=== PATIENT | male | born 1995 | race Caucasian/White ===

== ENCOUNTER → 2022-12-13 | Outpatient (CLI) | payer OTHER, SELFPAY ==
--- NOTE | 2022-12-13 | SEP_PTH ---
PATIENT: DEVIN BLACKWOOD LOC: [facility] U#:[id number] AGE/SX: 27/M ROOM: RE12/13/[address]: Dr. Isaiah Bahena MD : 1995 BED: DIS: 12/13/2022 SPEC #: [id number] RECD: 12/14/22 15:17 STATUS: [place] JC #: [id number] XENIA: 12/13/22 00:[address]: Isaiah Bahena DEPT: SURGICAL PATHOLOGY RECD BY: Wild Styles ENTERED: 12/15/22 06:47 SP TYPE: SEPTUM OTHR DR: No Primary Care Phys [facility] Tissues: Nasal septum, NOS Procedures: Decalcification bone/plaque Surgery Specimen Level III HEADER OPERATION: Septoplasty, submucous resection inferior turbinates PRE-OP DIAGNOSIS: Nasal congestion, deviated nasal septum, allergic rhinitis due to pollen, hypertrophy of nasal turbinates TISSUE SUBMITTED: Septum MICROSCOPIC DIAGNOSIS Nasal septum, septoplasty: Fragments of hyaline cartilage and bone with reactive and reparative change (clinically deviated septum). AM:yoni 12/17/2022 MICROSCOPIC DESCRIPTION Slides are reviewed. GROSS DESCRIPTION Received in fixative is one container labeled with the patient's name and designated septum. The specimen consists of multiple irregular fragments of murry-white bone and cartilage that in aggregate measure 2.8 x 2.2 x 0.2 cm. The specimen is totally submitted in one cassette after decalcification. / AM:yoni 12/15/2022 TC:5 CPT: 96907, 14441
== END | disposition home or self-care (01) ==
PROVIDERS: Referring Provider Otolaryngology; Visit Provider Otolaryngology
DX: R09.81 Nasal congestion (principal); J34.2 Deviated nasal septum; J30.9 Allergic rhinitis, unspecified; J34.3 Hypertrophy of nasal turbinates
CPT/HCPCS: 88304; 88311